=== PATIENT | male | born 1940 | race Caucasian/White ===

== ENCOUNTER 2018-10-31 16:20 | Emergency (ER) | payer MEDICARE, OTHER ==
[~2018-10-31] VITALS: Ht 165.1 cm; Wt 66.8 kg
[~2018-10-31 16:20] MED LIST: ASPI-1265 PO; CARV-50 PO; CHOL2000 PO; FURO-150 PO; MAGN400C PO; POTA20TA19 PO; SIMV5TAB58 PO
[2018-10-31 17:43] LABS: CLARITY,URINE CLEAR (Clear); COLOR,URINE YELLOW (Yellow); GLUCOSE, URINE NEGATIVE (Neg); KETONES,URINE NEGATIVE (Neg); LEUKOCYTE ESTERASE ,URINE NEGATIVE (Neg); NITRITES, URINE NEGATIVE (Neg); OCCULT BLOOD,URINE TRACE-LYSED (Neg); PH,URINE 5.5 (4.8-8.0); PROTEIN,URINE NEGATIVE (Neg); UROBILINOGEN,URINE 0.2 E.U/dL (0.2-1.0)
[2018-10-31 17:45] VITALS: BP 132/68
[2018-10-31 17:45] LABS: UA COLLECTION TYPE CLN CATCH MIDSTREAM
[2018-10-31 17:50] LABS: BASOPHILS % (AUTO) 0.5 % (0-1); EOSINOPHILS # (AUTO) 0.1 X10'3 (0-0.9); EOSINOPHILS % (AUTO) 1.5 % (0-6); HEMATOCRIT 41.5 % (42.0-52.0); HEMOGLOBIN 13.8 g/dl (14.0-17.9); LYMPHOCYTES # (AUTO) 1.2 X10'3 (1.1-4.8); LYMPHOCYTES % (AUTO) 18.6 % (21-51); MEAN CORPUSCULAR HGB CONC 33.3 g/dL (33.0-36.5); MEAN CORPUSCULAR VOLUME 96.1 FL (78-98); MEAN PLATELET VOLUME 9.4 FL (7.4-10.4); MONOCYTES # (AUTO) 0.5 X10'3 (0-0.9); MONOCYTES % (AUTO) 7.6 % (2-12); NEUTROPHILS # (AUTO) 4.8 X10'3 (1.8-7.7); NEUTROPHILS % (AUTO) 71.8 % (42-75); PLATELET COUNT 136 X10'3 (140-440); RED BLOOD COUNT 4.32 X10'6 (4.70-6.10); RED CELL DISTRIBUTION WIDTH 14.2 % (11.5-14.5); WHITE BLOOD COUNT 6.6 X10'3 (4.5-11.0)
[2018-10-31 17:53] LABS: HYALINE CASTS 0-3 /LPF (NEGATIVE); MUCUS STRANDS FEW /LPF (Neg); SQUAMOUS EPITHELIAL CELL,UR FEW /LPF (FEW)
[2018-10-31 17:54] LABS: BACTERIA,URINE FEW /HPF (Neg); RBC,URINE 0-2 /HPF (0-2); WBC,URINE 0-4 /HPF (0-4)
[2018-10-31 17:58] LABS: ALANINE AMINOTRANSFERASE 32 U/L (12-78); ALBUMIN 3.8 G/DL (3.4-5.0); ALBUMIN/GLOBULIN RATIO 1.2 (1.1-1.5); ALKALINE PHOSPHATASE 63 IU/L (46-116); ANION GAP 12 (8-16); ASPARTATE AMINO TRANSFERASE 34 U/L (10-37); BILIRUBIN,TOTAL 0.4 MG/DL (0.1-1.0); BLOOD UREA NITROGEN 32 MG/DL (7-18); BUN/CREATININE RATIO 27.8 (5.4-32.0); CALCIUM 9.4 MG/DL (8.5-10.1); CHLORIDE 108 MMOL/L (99-107); CREATININE 1.15 MG/DL (0.60-1.10); GLUCOSE 125 MG/DL (70-104); PARTIAL THROMBOPLASTIN TIME 27 SECONDS (22-32); POTASSIUM 4.7 MMOL/L (3.5-5.1); SODIUM 141 MMOL/L (135-145); TOTAL CARBON DIOXIDE 21.3 MMOL/L (24-32); eGFR 62 ML/MIN
== END 2018-10-31 18:58 | disposition home or self-care (01) ==
LOC: ER 16:20
DX: F03.90 Unspecified dementia, unspecified severity, without behavioral disturbance, psychotic disturbance, mood disturbance, and anxiety (principal); F22 Delusional disorders; R41.0 Disorientation, unspecified; I50.9 Heart failure, unspecified; Z95.0 Presence of cardiac pacemaker; Z88.8 Allergy status to other drugs, medicaments and biological substances; Z79.82 Long term (current) use of aspirin; Z79.899 Other long term (current) drug therapy
CPT/HCPCS: 36415; 71045; 80053; 81001; 82948; 85025; 85610; 85730; 93005; 99284

== ENCOUNTER 2018-11-06 07:47 | Emergency (ER) | payer MEDICARE, OTHER ==
[~2018-11-06] VITALS: Ht 165.1 cm; Wt 65.9 kg
--- NOTE | 2018-11-06 08:05 | NUR ---
PT SPOUSE AUDI AT BEDSIDE STATES PT HX HAS PACEMAKER, CHF SINCE 2007, SEIZURES (ABSENT), PREFRONTAL BRAIN DISEASE/DEMENTIA, PARKINSONISM, PT USES el? ON [address] PH# [phone], PHARMACY OPENS AT 0900, PT SPOUSE STATES PT ALSO TAKES CARVEDILOL 25MG BID BUT PT HAS REFUSED AND NOT TAKEN IN 3 DAYS, WILL CALL [facility] AT 0900 TO HAVE MED LIST FAXED OVER. 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
--- NOTE | 2018-11-06 08:14 | NUR ---
PER DR LILIAN NOWAK MEDICAL OFFICE ADMINISTRATOR AND UT TO ORDER HEART HEALTHY DIET WITH [employer], GAVE DR MAGALYS DICKEY PHONE [facility] TO DR [place] FOR CONSULATION.
--- NOTE | 2018-11-06 09:00 | NUR ---
WARD SUPERVISOR TO SEE PATIENT
[2018-11-06 09:05] LABS: BASOPHILS % (AUTO) 0.4 % (0-1); EOSINOPHILS # (AUTO) 0.1 X10'3 (0-0.9); EOSINOPHILS % (AUTO) 2.1 % (0-6); HEMATOCRIT 43.4 % (42.0-52.0); HEMOGLOBIN 14.6 g/dl (14.0-17.9); LYMPHOCYTES # (AUTO) 1.1 X10'3 (1.1-4.8); LYMPHOCYTES % (AUTO) 15.9 % (21-51); MEAN CORPUSCULAR HEMOGLOBIN 32.5 PG (27.0-31.0); MEAN CORPUSCULAR HGB CONC 33.6 g/dL (33.0-36.5); MEAN CORPUSCULAR VOLUME 96.8 FL (78-98); MEAN PLATELET VOLUME 9.1 FL (7.4-10.4); MONOCYTES # (AUTO) 0.4 X10'3 (0-0.9); MONOCYTES % (AUTO) 6.1 % (2-12); NEUTROPHILS # (AUTO) 5.1 X10'3 (1.8-7.7); NEUTROPHILS % (AUTO) 75.5 % (42-75); PLATELET COUNT 136 X10'3 (140-440); RED BLOOD COUNT 4.49 X10'6 (4.70-6.10); RED CELL DISTRIBUTION WIDTH 14.1 % (11.5-14.5); WHITE BLOOD COUNT 6.8 X10'3 (4.5-11.0)
[2018-11-06 09:14] LABS: ALANINE AMINOTRANSFERASE 23 U/L (12-78); ALBUMIN 3.8 G/DL (3.4-5.0); ALBUMIN/GLOBULIN RATIO 1.2 (1.1-1.5); ALKALINE PHOSPHATASE 70 IU/L (46-116); ANION GAP 4 (8-16); ASPARTATE AMINO TRANSFERASE 19 U/L (10-37); BILIRUBIN,TOTAL 0.6 MG/DL (0.1-1.0); BLOOD UREA NITROGEN 35 MG/DL (7-18); BUN/CREATININE RATIO 29.7 (5.4-32.0); CALCIUM 9.2 MG/DL (8.5-10.1); CHLORIDE 112 MMOL/L (99-107); CREATININE 1.18 MG/DL (0.60-1.10); GLUCOSE 98 MG/DL (70-104); POTASSIUM 4.8 MMOL/L (3.5-5.1); SODIUM 145 MMOL/L (135-145); TOTAL CARBON DIOXIDE 29.2 MMOL/L (24-32); eGFR 60 ML/MIN
[2018-11-06 09:22] LABS: MAGNESIUM 2.2 MG/DL (1.5-2.4); PHOSPHORUS 3.2 MG/DL (2.3-4.5)
--- NOTE | 2018-11-06 09:38 | NUR ---
CALLED PRECIOUS [phone] SPOKE WITH TERI, REQUESTED FAX OF PT MEDICATION LIST.
[2018-11-06] MEDS ORDERED: LAMO25TA41 PO (09:44)
[2018-11-06] MEDS ORDERED: LISI-604 PO (09:48)
[2018-11-06] MEDS ORDERED: QUET25TA PO (09:48)
[2018-11-06] MEDS ORDERED: CLON-527 PO (09:48)
[2018-11-06] MEDS ORDERED: carVEDilol 12.5mg tablet PO SCH (10:00)
[2018-11-06] MEDS ORDERED: furosemide 20MG tablet PO SCH (10:00)
[2018-11-06] MEDS ORDERED: potassium Cl 20 mEq SR tablet PO SCH (10:00)
[2018-11-06] MEDS ORDERED: lamoTRIgine 25mg tablet PO SCH (10:00)
[2018-11-06] MEDS ORDERED: lisinopril 5mg tablet PO SCH (10:00)
--- NOTE | 2018-11-06 11:38 | NUR ---
[facility] TO COME EVALUATE PT AT 1500 TODAY FOR HOME CAREGIVERS, WILL RE-EVALUATE DISCHARGE PLAN AT THAT TIME.
[2018-11-06] MEDS ORDERED: diltiazem CD 120mg capsule (once-daily) PO SCH (12:15)
[2018-11-06 13:52] VITALS: BP 118/74
[2018-11-06] MEDS ORDERED: QUEtiapine 25mg tablet PO SCH (21:00)
[2018-11-06] MEDS ORDERED: clonazePAM 1mg tablet PO SCH (21:00)
== END 2018-11-06 13:56 | disposition home or self-care (01) ==
LOC: ER 07:47
DX: F03.90 Unspecified dementia, unspecified severity, without behavioral disturbance, psychotic disturbance, mood disturbance, and anxiety (principal); I50.9 Heart failure, unspecified; Z95.0 Presence of cardiac pacemaker; Z79.899 Other long term (current) drug therapy; Z88.1 Allergy status to other antibiotic agents
CPT/HCPCS: 36415; 80053; 83735; 84100; 84443; 85025; 99284

== ENCOUNTER 2018-11-10 11:30 | Emergency (ER) | payer MEDICARE, OTHER ==
[~2018-11-10] VITALS: Ht 185.4 cm; Wt 77.3 kg
[~2018-11-10 11:30] MED LIST changes: -ASPI-1265 PO; -CHOL2000 PO; +CLON-527 PO; +LAMO25TA41 PO; +LISI-604 PO; -MAGN400C PO; +QUET25TA PO; -SIMV5TAB58 PO
[2018-11-10] MEDS ORDERED: haloperidol lactate 5mg/ml inj IM ONE (11:45)
[2018-11-10] MEDS ORDERED: diphenhydrAMINE 25mg capsule PO ONE (11:45)
[2018-11-10] MEDS ORDERED: normal saline 1000ML IV soln IVB ONE (11:50)
[2018-11-10 12:25] LABS: BASOPHILS # (AUTO) 0.1 X10'3 (0-0.2); BASOPHILS % (AUTO) 0.7 % (0-1); EOSINOPHILS % (AUTO) 0.5 % (0-6); HEMATOCRIT 44.2 % (42.0-52.0); HEMOGLOBIN 14.8 g/dl (14.0-17.9); LYMPHOCYTES % (AUTO) 13.3 % (21-51); MEAN CORPUSCULAR HEMOGLOBIN 31.9 PG (27.0-31.0); MEAN CORPUSCULAR HGB CONC 33.4 g/dL (33.0-36.5); MEAN CORPUSCULAR VOLUME 95.7 FL (78-98); MEAN PLATELET VOLUME 9.4 FL (7.4-10.4); MONOCYTES # (AUTO) 0.8 X10'3 (0-0.9); MONOCYTES % (AUTO) 9.9 % (2-12); NEUTROPHILS # (AUTO) 5.8 X10'3 (1.8-7.7); NEUTROPHILS % (AUTO) 75.6 % (42-75); PLATELET COUNT 125 X10'3 (140-440); RED BLOOD COUNT 4.62 X10'6 (4.70-6.10); WHITE BLOOD COUNT 7.7 X10'3 (4.5-11.0)
[2018-11-10 12:32] LABS: ALANINE AMINOTRANSFERASE 22 U/L (12-78); ALBUMIN 3.7 G/DL (3.4-5.0); ALBUMIN/GLOBULIN RATIO 1.1 (1.1-1.5); ALKALINE PHOSPHATASE 64 IU/L (46-116); ANION GAP 7 (8-16); ASPARTATE AMINO TRANSFERASE 53 U/L (10-37); BILIRUBIN,TOTAL 0.9 MG/DL (0.1-1.0); BLOOD UREA NITROGEN 28 MG/DL (7-18); BUN/CREATININE RATIO 25.7 (5.4-32.0); CALCIUM 9.1 MG/DL (8.5-10.1); CHLORIDE 109 MMOL/L (99-107); CREATININE 1.09 MG/DL (0.60-1.10); GLUCOSE 94 MG/DL (70-104); POTASSIUM 4.2 MMOL/L (3.5-5.1); SODIUM 142 MMOL/L (135-145); TOTAL CARBON DIOXIDE 26.3 MMOL/L (24-32); eGFR 66 ML/MIN
[2018-11-10] MEDS ORDERED: gabapentin 400mg capsule PO STA (13:23)
[2018-11-10] MEDS ORDERED: LORazepam 2 mg/ml vial IV ONE (13:25)
[2018-11-10] MEDS ORDERED: gabapentin 300mg capsule PO STA (13:28)
[2018-11-10 13:38] LABS: CLARITY,URINE CLEAR (Clear); COLOR,URINE YELLOW (Yellow); GLUCOSE, URINE NEGATIVE (Neg); KETONES,URINE 15 mg/dl (Neg); LEUKOCYTE ESTERASE ,URINE NEGATIVE (Neg); NITRITES, URINE NEGATIVE (Neg); OCCULT BLOOD,URINE TRACE-INTACT (Neg); PH,URINE 5.5 (4.8-8.0); PROTEIN,URINE NEGATIVE (Neg); UROBILINOGEN,URINE 0.2 E.U/dL (0.2-1.0)
[2018-11-10 13:43] LABS: UA COLLECTION TYPE STRAIGHT CATH
[2018-11-10 13:44] LABS: BACTERIA,URINE FEW /HPF (Neg); RBC,URINE 0-2 /HPF (0-2); SQUAMOUS EPITHELIAL CELL,UR FEW /LPF (FEW); WBC,URINE 0-4 /HPF (0-4)
--- NOTE | 2018-11-10 13:55 | NUR ---
Patient calm, no signs of distress noted at this time, Dr Martinez at bedside, family at bedside. Call to CT to perform scan, tech to transport patient.
[2018-11-10 16:14] VITALS: BP 127/68
== END 2018-11-10 16:17 | disposition home or self-care (01) ==
LOC: ER 11:30
DX: F03.90 Unspecified dementia, unspecified severity, without behavioral disturbance, psychotic disturbance, mood disturbance, and anxiety (principal); R41.0 Disorientation, unspecified; I50.9 Heart failure, unspecified; Z95.0 Presence of cardiac pacemaker; Z88.1 Allergy status to other antibiotic agents; Z79.899 Other long term (current) drug therapy
CPT/HCPCS: 36415; 70450; 71045; 80053; 81001; 85025; 93005; 96372; 96374; 99284; J1630; J2060; J7030; P9612; Q0163